=== PATIENT | male | born 1945 ===

== ENCOUNTER → 2019-09-18 | Outpatient (CLI) | payer OTHER | END | disposition home or self-care (01) | LOC: SJCVC 14:40 | DX: I25.10 Atherosclerotic heart disease of native coronary artery without angina pectoris (principal); E78.00 Pure hypercholesterolemia, unspecified; J44.9 Chronic obstructive pulmonary disease, unspecified; E78.5 Hyperlipidemia, unspecified; F17.210 Nicotine dependence, cigarettes, uncomplicated; Z79.82 Long term (current) use of aspirin; Z79.899 Other long term (current) drug therapy ==

== ENCOUNTER → 2019-10-03 | Outpatient (CLI) | payer OTHER ==
--- NOTE | 2019-10-03 11:34 | 2DMMODE ---
[facility] [place] [address] 2 D/M-MODE ECHOCARDIOGRAM Name: VLADIMIR LLOYD Linden Room #: REG [facility]#: [id number] Admission: 10/03/19 Attend Phys: Shakir Alonso MD Discharge: Date of : 43 Report #: [id number] THIS REPORT FOR: //name// APPROVED REPORT Study performed: 10/03/2019 09:46:28 EXAM: Comprehensive 2D, Doppler, and color-flow Echocardiogram Patient Location: Out-Patient Status: routine BSA: 1.68 HR: 68 bpm BP: 130/80 mmHg Rhythm: NSR Other Information Study Quality: Adequate/low parasternal window Indications Dyspnea 2D Dimensions RVDd: 28.52 mm IVSd: 12.44 (7-11mm) LVOT Diam: 21.28 (18-24mm) LVDd: 38.56 mm PWd: 8.99 (7-11mm) LVDs: 27.89 (25-40mm) Aortic Root: 32.03 mm Volumes Left Atrial Volume (Systole) Single Plane 4CH: 27.27 mL Single Plane 2CH: 36.72 mL LA ESV Index: 21.00 mL/m2 Aortic Valve AoV Peak Darrel.: 1.61 m/s AO Peak Gr.: 10.73 mmHg LVOT Max P.92 mmHg LVOT Max V: 0.99 m/s PETRA Vmax: 2.18 cm2 Mitral Valve E/A Ratio: 0.8 MV Decel. Time: 207.10 ms MV E Max Darrel.: 0.79 m/s [facility] [address] [place] [address] 2 D/M-MODE ECHOCARDIOGRAM Name: VLADIMIR LLOYD Linden Room #: REG [facility]#: [id number] Admission: 10/03/19 Attend Phys: Shakir Alonso MD Discharge: Date of : 43 Report #: [id number] MV A Darrel.: 0.96 m/s MV PHT: 60.06 ms IVRT: 79.58 ms Pulmonary Valve PV Peak Darrel.: 1.09 m/s PV Peak Gr.: 4.71 mmHg Pulmonary Vein P Vein S: 0.53 m/s P Vein A: 0.39 m/s P Vein D: 0.32 m/s P Vein A Dur.: 107.3 msec P Vein S/D Ratio: 1.66 Tricuspid Valve TR Peak Darrel.: 2.46 m/s RAP Estimate: 10.00 mmHg TR Peak Gr.: 24.15 mmHg PA Pressure: 34.00 mmHg Left Ventricle The left ventricle is normal size. There is normal LV segmental wall motion. Mild basal septal hypertrophy is present. Left ventricular systolic function is normal. LVEF is 55-60%. Mild diastolic dysfunction is present (impaired relaxation pattern). Right Ventricle The right ventricle is normal size. The right ventricular systolic function is normal. Atria The left atrium size is normal. The right atrium size is normal. Aortic Valve The aortic valve is normal in structure. Leaflets are moderately sclerotic. No aortic regurgitation is present. There is no aortic valvular stenosis. Mitral Valve Mitral valve leaflets are thickened. Mild mitral annular calcification. Mild mitral regurgitation. No evidence of mitral valve stenosis. Tricuspid Valve The tricuspid valve is normal in structure. Mild tricuspid regurgitation. Estimated PAP is 30-35mmHg. Pulmonic Valve [facility] [place] [address] 2 D/M-MODE ECHOCARDIOGRAM Name: VLADIMIR LLOYD Room #: REG [facility]#: [id number] Admission: 10/03/19 Attend Phys: Shakir Alonso MD Discharge: Date of : 43 Report #: [id number] Pulmonic valve is not well visualized. Trace pulmonic regurgitation. Great Vessels The aortic root is normal in size. Ascending aorta is not well visualized. IVC is dilated and collapses <50% with inspiration. Pericardium There is no pericardial effusion. <Conclusion> The left ventricle is normal size. Left ventricular systolic function is normal. Mild diastolic dysfunction is present (impaired relaxation pattern). The right ventricle is normal size. The left atrium size is normal. The aortic valve is normal in structure. Leaflets are moderately sclerotic. Mild mitral annular calcification. Mild mitral regurgitation. Mild tricuspid regurgitation. Estimated PAP is 30-35mmHg. <ELECTRONICALLY SIGNED> By: Shakir Alonso MD 10/03/19 1133 113 113 Shakir Alonso MD /INF
== END ==
LOC: CV 09:32
DX: I08.1 Rheumatic disorders of both mitral and tricuspid valves (principal); E78.5 Hyperlipidemia, unspecified; Z87.891 Personal history of nicotine dependence; Z82.49 Family history of ischemic heart disease and other diseases of the circulatory system

== ENCOUNTER → 2019-10-07 | Outpatient (CLI) | payer OTHER | LOC: SJCVC 15:25 | DX: I25.10 Atherosclerotic heart disease of native coronary artery without angina pectoris (principal); E78.00 Pure hypercholesterolemia, unspecified; Z72.0 Tobacco use; Z72.89 Other problems related to lifestyle ==

== ENCOUNTER → 2020-07-06 | Outpatient (CLI) | payer OTHER | LOC: SJCVCIMAG 08:51 | PROVIDERS: ATTEND Internal Medicine Cardiovascular Disease | DX: I08.2 Rheumatic disorders of both aortic and tricuspid valves (principal); I25.10 Atherosclerotic heart disease of native coronary artery without angina pectoris; E78.00 Pure hypercholesterolemia, unspecified; I10 Essential (primary) hypertension; F17.210 Nicotine dependence, cigarettes, uncomplicated; Z79.899 Other long term (current) drug therapy ==

== ENCOUNTER → 2021-07-27 | Outpatient (CLI) | payer OTHER | LOC: SJCVC 13:22 | PROVIDERS: ATTEND Internal Medicine Cardiovascular Disease | DX: E78.00 Pure hypercholesterolemia, unspecified (principal); R93.1 Abnormal findings on diagnostic imaging of heart and coronary circulation; I10 Essential (primary) hypertension; F17.210 Nicotine dependence, cigarettes, uncomplicated; J44.9 Chronic obstructive pulmonary disease, unspecified; I25.10 Atherosclerotic heart disease of native coronary artery without angina pectoris; E78.5 Hyperlipidemia, unspecified; Z79.899 Other long term (current) drug therapy ==